=== PATIENT | female | born 1955 | race Caucasian/White ===

== ENCOUNTER 2016-10-12 18:57 | Emergency (ER) | payer OTHER ==
[~2016-10-12] VITALS: Ht 165.1 cm; Wt 58.1 kg
[~2016-10-12 18:57] MED LIST: CALC-587 PO; MULT-806 PO; VITAMIN C; [UNRECOGNIZED DRUG - CODE] TD
[2016-10-12 18:58] VITALS: BP 139/83; PULSE 58; RESP 16; TEMP 97.8; O2SAT 93; Ht 165.1 cm; Wt 58.1 kg
[2016-10-12] MEDS ORDERED: NAPROXEN 500 MG TABLET PO ONE (19:15)
--- NOTE | 2016-10-12 19:15 | ERPDOC ---
Departure Disposition Decision Date: Oct 12, 2016 Disposition Decision Time: 20:04 Disposition: 01 DISCHARGED HOME, SELF-CARE Impression Impression Impression: Primary Impression: Knee pain, right Chronicity: acute Qualified Codes: M25.561 - Pain in right knee Severity: Mild Condition: Stable Seen By: Mid-level only Referrals: NERIS RODRIGUEZ DO (Family) Patient Instructions: Knee Pain (ED) Problems/Meds/Labs Reviewed?: Yes Medications reviewed and manag: Yes Additional Instructions: Use vincent wrap for compression Elevate and ice knee 4 times a day as able. Use naproxen [id number] 500 milligrams twice a day for 5 days to help with pain and inflammation Follow-up with Dr. Rodriguez in one week if not improving or return for worsening symptoms Follow up care ordered?: Yes Mental Status: Alert, Oriented HPI - Lower Extremity General Chief Complaint: Lower Extremity Pain Stated Complaint: POSS BLOOD CLOT Time Seen by Provider: 19:00 Source: patient Exam Limitations: no limitations HPI - Lower Extremity Initial Comments Patient is a 61-year-old female who presents to the emergency room for evaluation of right lower extremity discomfort just distal to the right knee. She reports has had pain on the anterior aspect distal to the knee for the past 2 days. Seems to be worse with standing or position changes. Reports that the longer that she walks the better that it feels. She presented to after hours clinic at [place]. This evening, however, was then directed to the emergency room for further workup. Occurred At: home Onset/Timing: Gradual Duration: 12-24 hrs Pain/Severity Scale: Now: 7/10 Severity: mild Pain/Injury Location: right knee 1 - pain Allergies: Coded Allergies: No Known Allergies (Unverified , 10/12/16) Past History Patient Medical History Problem List Updates: Chronic headaches Hx Brain injury Patient Surgical History Hysterectomy Vaccines Hx Influenza Vaccination: No Hx Pneumococcal Vaccination: No Social History Smoking Status: Current every day smoker Substance Use Type: does not use Alcohol Intake: none Current Occupation: Teacher Review of Systems Constitutional Constitutional: DENIES: chills, dizziness, fever, weakness Eyes General: DENIES: pain Lids/Accessories: DENIES: erythema, lumps/nodules ENMT Sinuses: DENIES: congestion, pain, rhinorrhea Mouth/Throat: DENIES: change in voice, sore throat Cardiovascular Cardiac: DENIES: chest pain, dyspnea on exertion, murmur Rhythm/Rate: DENIES: irregular beat, palpitations Pulmonary Respiratory: DENIES: cough, dyspnea, tachypnea GI Upper Abdomen: DENIES: nausea, pain, vomiting Lower Abdomen: DENIES: blood in stool, constipation, diarrhea, pain General: DENIES: burning, dysuria, frequency, pain, urgency Musculoskeletal General: pain (Right anterior lower ext distally to knee), DENIES: weakness Integumentary Skin: DENIES: rash Neurological General: DENIES: ataxia, change in strength, headache, numbness, seizures, syncope, weakness Psychiatric Psychiatric: DENIES: depression, emotional instability, irritability, nervousness All other Systems All Other Systems: Reviewed and Negative Physical Exam General Vitals and Pain First Documented Vital Signs Date Time Temp Pulse Resp B/P Pulse Ox O2 Delivery O2 Flow Rate FiO2 10/12/16 18:58 97.8 58 16 139/83 93 Room Air Weight: Kilograms: 58.100 Height (feet): 5 Height (inches): 5.00 Triage Pain Scale: Normal Exams: Head: Normocephalic w/o trauma Eyes: Pupils are PERRLA w/ EOMI, No scleral icterus, irritation, or foreign bodies noted Neck: Full range of motion, without adenopathy, JVD, bruits or thyromegaly Chest/Resp: Clear all lawrence, with good airflow, and symmetry bilaterally CV: Regular rate and rhythm, without murmur or gallop, Pulses 2+ all extremities, capillary refill, <2 seconds all ext., no pedal edema noted Abdomen: Bowel sounds positive, soft, non-tender, non-distended, no hepatosplenomegaly, masses or bruits noted Neurologic: Patient is alert, and oriented, cranial nerves, motor/sensory/ cerebellar, exams w/o gross deficits, to observation Psychiatric: Patient exhibits, appropriate attention, emotion and affect Musculoskeletal (brief) Musculoskeletal Brief: FOUND: tenderness (pain anterior aspect of the right lower extremity just distal to the knee. Mild medial soft tissue swelling) Differential Diagnoses Considering: Achilles Tendon Tear, Cartilage Tear, Cellulitis, Compartment Syndrome, Contusion, Dislocation, DVT, Ligament Tear ACL, Ligament Tear PCL, Meniscal Injury, Knee, Plantar Puncture, Sprain, Strain, Viral Synovitis Progress Results/Orders Orders Procedure Category Date Status Time Knee Right 3 Views RAD 10/12/16 Taken 19:11 D-Dimer LAB 10/12/16 Complete 19:11 Naproxen (Naprosyn PHA 10/12/16 Complete 500mg) 19:15 Cbc W/Auto LAB 10/12/16 Complete Diff-Reflex Manual Premade Splint EDM 10/12/16 Transmitted 20:05 Lab Results Laboratory Tests Test 10/12/16 19:22 10/12/16 19:26 White Blood Count 6.9T/MM3 Red Blood Count 4.59M/MM3 Hemoglobin 14.5GM/DL Hematocrit 42.8% Mean Corpuscular Volume 93.2UM3 Mean Corpuscular Hemoglobin 31.6UUG Mean Corpuscular Hemoglobin Concent 33.9GM/DL RDW Standard Deviation 42.7FL Platelet Count 181T/MM3 Mean Platelet Volume 10.3UM3 Immature Granulocyte % (Auto) 0.1% Neutrophils (%) (Auto) 52.0% Lymphocytes (%) (Auto) 35.6% Monocytes (%) (Auto) 6.2% Eosinophils (%) (Auto) 5.5% Basophils (%) (Auto) 0.6% Absolute Immature Granulocyte (auto 0.01T/MM3 Absolute Neutrophils (auto) 3.6T/MM3 Absolute Lymphocytes (auto) 2.5T/MM3 Absolute Monocytes (auto) 0.4T/MM3 Absolute Eosinophils (auto) 0.4T/MM3 Absolute Basophils (auto) 0.0T/MM3 D-Dimer < 150NG/ML Medications Current ED Medications Naproxen (NAPROSYN 500mg) 500 mg O ONCE PO Last administered on 10/12/16t 19:53 ; Start 10/12/16 at 19:15; Stop 10/12/16 at 19:16; Status DC Progress Progress Given risk factors for DVT including chronic Estrogen use, Chronic Tobacco use and recent car ride to [place] last week. Will obtain a d-dimer to rule out acute thrombus. Given pain to the knee with range of motion. Will obtain right knee x-ray. Reviewed all findings with patient. Recommend using Vincent wrap to the right knee for support. Encouraged use of NSAID, Naproxen 500 milligrams twice a day for 5 days. Encouraged to follow with primary care provider, Dr. Rodriguez for further evaluation and treatment. BRANDON PARKER V [employer] Oct 12, 2016 19:14
--- NOTE | 2016-10-12 19:30 | NUR ---
XRAY PATIENT TO RADIOLOGY PER WC, STABLE.
[2016-10-12 19:33] LABS: BASOPHILS % (AUTO) 0.6 % (0-2); EOSINOPHILS # (AUTO) 0.4 T/MM3 (0-0.5); EOSINOPHILS % (AUTO) 5.5 % (0-4); HCT - HEMATOCRIT 42.8 % (36-46); HGB - HEMOGLOBIN 14.5 GM/DL (12-16); IMMATURE GRANULOCYTE # (AUTO) 0.01 T/MM3 (0.00-0.03); IMMATURE GRANULOCYTE % (AUTO) 0.1 % (0.0-0.5); LYMPHOCYTES # (AUTO) 2.5 T/MM3 (1-4.8); LYMPHOCYTES % (AUTO) 35.6 % (23-45); MEAN CORPUSCULAR HGB 31.6 UUG (26-34); MEAN CORPUSCULAR HGB CONC(MCHC 33.9 GM/DL (31-37); MEAN CORPUSCULAR VOLUME 93.2 UM3 (80-100); MEAN PLATELET VOLUME 10.3 UM3 (9.4-12.4); MONOCYTES # (AUTO) 0.4 T/MM3 (0-0.8); MONOCYTES % (AUTO) 6.2 % (0-9.0); NEUTROPHILS #(AUTO)-ABSOLUTE 3.6 T/MM3 (1.8-7.7); RED BLOOD COUNT 4.59 M/MM3 (4.00-5.20); WBC - WHITE BLOOD COUNT 6.9 T/MM3 (4.5-11.0)
--- NOTE | 2016-10-12 19:36 | NUR ---
RETURN PATIENT BACK FROM XRAY PER WC, STABLE.
[2016-10-12] MEDS ORDERED: ESTR1PAT91 TD (19:44)
[2016-10-12] MEDS ORDERED: LACT1CAP73 PO (19:47)
[2016-10-12] MEDS ORDERED: PSEU120T17 PO (19:47)
[2016-10-12] MEDS ORDERED: ASCO500T8 PO (19:47)
[2016-10-12] MEDS ORDERED: ESTRPATC4 TD (19:47)
[2016-10-12] MEDS ORDERED: CA C1TAB99 PO (19:48)
[2016-10-12] MEDS ORDERED: ACET-62 PO (19:48)
--- NOTE | 2016-10-12 20:15 | NUR ---
DEPART RN TO BEDSIDE TO DISMISS PATIENT, PATIENT NOT IN ROOM, RN CHECKED WITH REGISTRATION, THEY REPORT PATIENT HAS ALREADY LEFT. PATIENT LEFT PRIOR TO RECEIVING EDUCATION AND GIDEON WRAP.
--- NOTE | 2016-10-13 08:02 | DI ---
Indication: ITS.REASON: pain, swelling PROCEDURE: KNEE RIGHT 3 VIEWS: Encounter: Initial Comparison: None Findings: There is no acute fracture, dislocation or malalignment identified. Impression: No acute osseous abnormality. .
== END 2016-10-12 20:15 | disposition home or self-care (01) ==
LOC: ED 18:57
DX: M25.561 Pain in right knee (principal); F17.200 Nicotine dependence, unspecified, uncomplicated; Z79.3 Long term (current) use of hormonal contraceptives
CPT/HCPCS: 36415; 85025; 85379

== ENCOUNTER → 2016-11-30 | Outpatient (CLI) | payer OTHER ==
[~2016-11-30] MED LIST changes: +ACET-62 PO; +ASCO500T8 PO; +CA C1TAB99 PO; -CALC-587 PO; +ESTRPATC4 TD; +LACT1CAP73 PO; +PSEU120T17 PO; -VITAMIN C; -[UNRECOGNIZED DRUG - CODE] TD
== END ==
LOC: WC.BC 13:23
DX: Z12.31 Encounter for screening mammogram for malignant neoplasm of breast (principal)
CPT/HCPCS: 77063; G0202

== ENCOUNTER 2017-08-15 12:46 | Inpatient (IN) ==
--- NOTE | 2017-08-15 12:59 | Emergency Department Report ---
General Adult HPI - General Chief complaint: Shortness of Breath/Dyspnea Stated complaint: pneumonia, left side pain Time Seen by Provider: 08/15/17 12:57 Source: patient, family Mode of arrival: ambulatory Limitations: no limitations - History of Present Illness HPI narrative: 62-year-old female presents to the emergency department with a chief complaint of pain in her left posterior ribs. Patient noted onset of symptoms couple of days ago prior to arrival to the emergency department. She was seen and evaluated yesterday and prescribed Levaquin for treatment of pneumonia. She describes her pain as sharp. Pain is severe. No radiation. This is the same pain she was experiencing 1 day ago. She notes a cough productive of green mucus. She has no other complaints or associated symptoms at this time. Symptoms have been persisted in nature since onset. She denies any trauma or injury. - Related Data Home Medications Medication Instructions Recorded Confirmed Ascorbate Calcium [Vitamin C] 1,000 mg PO DAILY 08/14/17 08/15/17 Calcium Carb/Vitamin D3/Vit K1 1 tab PO DAILY 08/14/17 08/15/17 [Viactiv Soft Chew Tablet] Cholecalciferol (Vitamin D3) 1,000 unit PO DAILY 08/14/17 08/15/17 [Vitamin D3] Estradiol [Estradiol] 1 patch TD WEEKLY 08/14/17 08/15/17 Ibuprofen 400 mg PO Q4H PRN 08/14/17 08/15/17 Lactobacillus Acidophilus 1 cap PO DAILY 08/14/17 08/15/17 [Probiotic] Loratadine [Claritin] 10 mg PO DAILY 08/14/17 08/15/17 Multivitamin [One Daily] 1 tab PO DAILY 08/14/17 08/15/17 PEG 3350 17gm PACKET [Miralax] 17 gm PO DAILY PRN 08/15/17 08/15/17 Previous Rx's Medication Instructions Recorded levoFLOXacin [Levaquin] 500 mg PO DAILY #14 tab 08/14/17 Allergies Allergy/AdvReac Type Severity Reaction Status Date / Time No Known Allergies Allergy Verified 08/15/17 12:53 Review of Systems Constitutional: Denies: fever, chills Eyes: Denies: eye pain, vision change ENT: Denies: ear pain, throat pain Cardiovascular: Denies: chest pain, palpitations Respiratory: Reports: cough, dyspnea. Denies: wheezes Gastrointestinal: Denies: abdominal pain, nausea, vomiting, diarrhea Genitourinary: Denies: urgency, dysuria Musculoskeletal: Denies: back pain, arthralgia Integumentary: Denies: erythema, rash Neurological: Denies: headache, numbness Psychiatric: Denies: anxiety, depression Endocrine: Denies: fatigue, heat or cold intolerance Hematological/Lymphatic: Denies: easy bruising, lymphadenopathy Allergic/Immunologic: Denies: facial swelling, urticaria PFSH Patient Stated Medical History Pneumonia Yes Post Menopausal Yes Clinic Medical History (Last Updated 04/06/17 @ 09:13 by Min Bates MD) Chronic headaches (Acute Medical ~04/2016) Surgical History: Hysterectomy 1997. Bunuionectomy 2013 Family History: Family History (Last Reviewed 04/06/17 @ 08:54 by Min Bates MD) Mother Heart attack High blood pressure Father Diabetes Stroke - Social History Smoking status: Former smoker Substance use type: does not use Alcohol intake frequency: does not drink Physical Exam - Limitations Limitations: no limitations - General General appearance: alert, in no apparent distress (shallow respirations noted. ) - Normal Exams: Head:: Normocephalic without trauma Eyes:: Pupils are PERRLA w/ EOMI, No scleral icterus, irritation, or foreign bodies noted ENMT:: No facial trauma, nasal exudates, pharyngeal erythema, or exudates are noted Dental: No fractured, loose, or missing teeth noted Neck:: Full range of motion, without adenopathy, JVD, bruits or thyromegaly Chest/Respirations:: Clear all lawrence (Diminished lung sounds in the bases.), with good airflow, and symmetry bilaterally Cardiovascular:: Regular rate and rhythm, without murmur or gallop, Pulses 2+ all extremities, capillary refill, <2 seconds all extremities Abdomen:: Bowel sounds positive, soft, non-tender, non-distended, no hepatosplenomegaly, masses or bruits noted Lymphatic:: No lymphadenopathy, or lymphedema noted Musculoskeletal:: No tenderness, or deformity noted, good range of motion, all extremities Integumentary:: No rashes, hives, or bruising noted, hair and nails, without abnormality Neurological:: Patient is alert, and oriented, cranial nerves, motor/sensory/ cerebellar, exams w/o gross deficits, to observation Psychiatric:: Patient exhibits, appropriate attention, emotion and affect Course Vital Signs Temperature 98.6 F 08/15/17 12:54 Pulse Rate 109 H 08/15/17 12:54 Respiratory Rate 32 H 08/15/17 12:54 Blood Pressure 140/80 H 08/15/17 12:54 Pulse Oximetry 93 08/15/17 12:54 Temperature 96.5 F L 08/16/17 00:00 Pulse Rate 67 08/16/17 00:00 Respiratory Rate 18 08/16/17 00:00 Blood Pressure 156/83 H 08/16/17 00:00 Pulse Oximetry 97 08/16/17 00:00 Medical Decision Making - [facility] Narrative Medical decision making narrative: Labs/imaging were discussed in detail with the patient and family and questions are answered. Patient is given gentle IV hydration. Patient is given parental narcotic and antiemetic medications intravenously which improved her symptoms. Patient is started on Rocephin 1 g intravenously in the emergency department after chest x-ray is reviewed. Sepsis was considered at 1400 and a chest x-ray was reviewed and Rocephin ordered. Patient is admitted to the service of the hospitalist Dr. Izaguirre in improved condition. No further orders from accepting physician who is in agreement with the current plan of management. Patient is started on Rocephin 1 g intravenously in the emergency department after chest x-ray is reviewed. Sepsis was considered at 1400 and a chest x-ray was reviewed and Rocephin ordered. She was never hypotensive in the ED and her lactic acid was less than 4.0. - Differential Diagnosis PNA, Viral syndrome, URI, Metabolic disorder - Lab Data Result diagrams: 08/16/17 04:33 08/16/17 04:33 Lab Results 08/15/17 08/15/17 08/15/17 Range/Units 13:21 13:21 13:21 WBC 12.5 H (4.5-11.0) T/MM3 RBC 4.08 (4.00-5.20) M/MM3 Hgb 12.9 (12-16) GM/DL Hct 37.8 (36-46) % MCV 92.6 (80-100) UM3 MCH 31.6 (26-34) UUG MCHC 34.1 (31-37) GM/DL RDW Std Deviation 42.5 (36.9-50.2) FL Plt Count 165 (130-400) T/MM3 MPV 9.9 (9.4-12.4) UM3 Immature Gran % (Auto) 1.0 H (0.0-0.5) % Neut % (Auto) 85.0 H (33-66) % Lymph % (Auto) 6.3 L (23-45) % [place] % (Auto) 7.4 (0-9.0) % Eos % (Auto) 0.1 (0-4) % Baso % (Auto) 0.2 (0-2) % Neut # (Auto) 10.6 H (1.8-7.7) T/MM3 Lymph # (Auto) 0.8 L (1-4.8) T/MM3 [place] # (Auto) 0.9 H (0-0.8) T/MM3 Eos # (Auto) 0.0 (0-0.5) T/MM3 Baso # (Auto) 0.0 (0-0.2) T/MM3 Abs Immat Gran (auto) 0.12 H (0.00-0.03) T/MM3 Turbidity < 20 (0-20) Sodium 134 (134-144) MEQ/L Potassium 3.9 (3.6-5) MEQ/L Chloride 102 (98-107) MEQ/L Carbon Dioxide 25 (22-30) MEQ/L Anion Gap 7 (5-15) MEQ/L BUN 10.0 (7-17) MG/DL Creatinine 0.6 L (0.7-1.2) MG/DL GFR Calculation 102 BUN/Creatinine Ratio 17 (6-26) RATIO Glucose 128 H (65-110) MG/DL Calculated Osmolality 259 L (261-280) MOSM/KG Calcium 9.0 (8.4-10.2) MG/DL Total Bilirubin 0.70 (0.20-1.30) MG/DL Icterus Index < 2 (0-7) AST 18 (14-36) U/L ALT 30 (9-52) U/L Alkaline Phosphatase 91 (38-126) U/L Troponin I < 0.012 (0-0.12) ng/ml Total Protein 7.1 (6.3-8.2) G/DL Albumin 3.8 (3.5-5.0) G/DL Globulin 3.3 (2.4-3.6) G/DL Albumin/Globulin Ratio 1.2 (1.1-2.2) RATIO Plasma Lactate 1.7 (0.6-2.2) MMOL/L Procalcitonin 0.97 NG/ML Specimen Hemolysis < 15 (0-25) - Radiology Data CXR - Bilateral Lower Lobe Infiltrates otherwise no acute processes. - EKG Data EKG #1 EKG results narrative: Sinus tachycardia. 104 bpm. No STEMI. Disposition Clinical Impression: Bilateral pneumonia Disposition: 02 Acute Care Hosp, Other Condition: Stable Time of Disposition: 14:45 (Admit. Dr. Izaguirre. ) - Seen By: physician
[2017-08-15] MEDS ORDERED: NS 1,000 ML IV ONE (13:16)
[2017-08-15] MEDS ORDERED: FentaNYL 100 MCG/2 ML INJECTION IVP ONE ×2 (13:16→15:17)
[2017-08-15] MEDS ORDERED: ONDANSETRON 4 MG/2 ML INJECTION IVP ONE (13:17)
[2017-08-15] MEDS ORDERED: ALBUTEROL/IPRATROPIUM 2.5mg-0.5mg/3ml NEB AEROSOL ONE (13:17)
[2017-08-15] MEDS: SALINE FLUSH 10ml SYRINGE IVF PRN (13:31)
--- NOTE | 2017-08-15 13:46 | XRay Report ---
Indication: cough PROCEDURE: XR chest 1V: Encounter: Initial Comparison: CT abdomen and pelvis from yesterday Findings: Hazy airspace opacities are seen in both lower lobes as noted on prior CT with a small left effusion. No pneumothorax. Heart size and mediastinal contours are within normal limits. Pulmonary vascularity is normal. Impression: Lower lobe pneumonia. .
[2017-08-15] MEDS ORDERED: CEFTRIAXONE (ER USE ONLY) 1 GM in NS 100 ML IV ONE (14:00)
[2017-08-15 15:59] VITALS: BMI 20.5
[2017-08-15] MEDS ORDERED: MORPHINE SULFATE 2mg INJECTION IVP PRN (16:15)
[2017-08-15] MEDS: NS 1,000 ML IV SCH (16:30)
--- NOTE | 2017-08-15 16:30 | History & Physical Report ---
History of Present Illness Date: 08/15/17 Chief complaint: Bilateral pneumonia, shortness of breath, back pain HPI: Getrrude is a 62 year-old female who has been ill since 08/07/17. At that time she had cough and severe body aches. She felt that she had influenza, however, was not acutely evaluated. Over the course of that week, she felt that her symptoms mildly improved and she even attempted to go to work yesterday morning, however , then began to feel significantly worse. She presented to the emergency room yesterday afternoon for acute evaluation and left flank/back pain. WBC count yesterday was 14.4, abdominal CT was performed due to left back pain. Patient was found to have lower lobe pneumonia. She was started on Levaquin and discharged home. Today she presents back with significant pain in the left back with continued dyspnea and productive coughing. White count today was repeated is slightly down at 12.5. Chest was repeated today did reveal bilateral lower lobe pneumonia. Patient does meet SIRS criteria given tachypnea, tachycardia and leukocytosis. Given her worsening symptoms despite initiation of Levaquin the hospitalist services were contacted and accepted patient for inpatient admission for further evaluation and treatment. It is expected that her stay will be greater than 2 overnights. Gertrude is seen on admission. She appears to be in a moderate amount of discomfort during examination. She is tachypnea, breathing between 34 and 40 times a minute. He complains of having significant amount of left back and left posterior rib discomfort. She is unable to take a deep breath due to this pain. He describes muscle spasms that are intermittent in nature. He also reports having a moderate amount of productive thick green sputum. She denies having any fevers or chills, she does complain of generalized body pain that is been intermittent for the past 9-10 days. She denies having any chest pain, however, does feel short of breath at times. Reported nausea just prior to admission. No recent falls or injuries. Did discuss advanced directive. She does indicate she would like to be a do not resuscitate Review of Systems All systems PM: 10-point ROS was reviewed, no additional remarkable complaints except - Constitutional Constitutional: Present: fatigue, weakness - Respiratory Respiratory: Present: as per HPI, cough, dyspnea - Gastrointestinal Gastrointestinal: Present: nausea - Musculoskeletal Musculoskeletal: Present: as per HPI, back pain (left back pain) Past Medical History Headaches Pituitary adenoma Surgical History: Hysterectomy 1997. Bunuionectomy 2013 Family History Updates: Mother- [place], hypertension-. Father- diabetes, stroke - Social History Smoking status: Current some day smoker (occasional tobacco use) Substance use type: does not use Alcohol intake frequency: does not drink Current occupational status: employed (teacher) Current residence: Apartment/Private Home Social history: Resides independly at home with . Primary care provider, Dr. Rodriguez Medications Home Medications Medication Instructions Recorded Confirmed Type Ascorbate Calcium [Vitamin C] 1,000 mg PO DAILY 08/14/17 08/15/17 History Calcium Carb/Vitamin D3/Vit K1 1 tab PO DAILY 08/14/17 08/15/17 History [Viactiv Soft Chew Tablet] Cholecalciferol (Vitamin D3) 1,000 unit PO DAILY 08/14/17 08/15/17 History [Vitamin D3] Estradiol [Estradiol] 1 patch TD WEEKLY 08/14/17 08/15/17 History Ibuprofen 400 mg PO Q4H PRN 08/14/17 08/15/17 History Lactobacillus Acidophilus 1 cap PO DAILY 08/14/17 08/15/17 History [Probiotic] Loratadine [Claritin] 10 mg PO DAILY 08/14/17 08/15/17 History Multivitamin [One Daily] 1 tab PO DAILY 08/14/17 08/15/17 History PEG 3350 17gm PACKET [Miralax] 17 gm PO DAILY PRN 08/15/17 08/15/17 History Allergies Allergy/AdvReac Type Severity Reaction Status Date / Time No Known Allergies Allergy Verified 08/15/17 12:53 Exam Vital Signs: Temperature 97.0 F 08/15/17 16:00 Pulse Rate 107 H 08/15/17 16:00 Respiratory Rate 24 08/15/17 16:00 Blood Pressure 144/74 H 08/15/17 16:00 Pulse Oximetry 92 08/15/17 16:00 Height/Weight/BMI: Height 1.68 m Weight 57.7 kg Body Mass Index 20.5 - Constitutional Present: moderate distress, well nourished, well developed - Routine HEENT Exam Eye: Present: EOMI ENT: Present: mucous membranes moist, dentition normal - Routine Respiratory Exam Present: CTA bilaterally. Absent: wheezes - Routine Cardiovascular Exam Present: RRR, S1, S2, tachycardia. Absent: murmur - Routine Abdominal Exam Present: soft, normoactive bowel sounds, non distended. Absent: tenderness - Routine Extremities Exam Present: no edema, pulses intact - Routine Back/Spine/Pelvis Exam Back image: 1 - Significant pain - Routine Skin Exam Present: intact, dry, warm - Routine Neurological Exam Present: alert, oriented X3, CN II-XII intact, moving all extremities - Routine Psychiatric Exam Present: normal affect, cooperative Results - Labs CBC & Chem 7: 08/15/17 13:21 08/15/17 13:21 Assessment and Plan (1) SIRS (systemic inflammatory response syndrome) Current visit: Yes Status: Acute (2) Bilateral pneumonia Current visit: Yes Status: Acute Assessment and Plan: Impression Bilateral lower lobe pneumonia Sirs-tachycardia, tachypnea, leukocytosis Acute back pain Failed outpatient treatment Chronic headaches Chronic pituitary adenoma Plan Admit inpatient status under Dr. Izaguirre Did speak with case management, patient does meet criteria for inpatient admission given above listed. Initial lactate and pro-calcitonin were normal, will cancel serial lactate. Obtain a respiratory panel, sputum culture and d-dimer for further acute workup. Will continue with IV Levaquin 750 mg q 24 hr antimicrobial coverage. Blood cultures pending DuoNeb breathing treatments scheduled 4 times a day, also encourage use of incentive spirometry. Concerned about patient's amount of chest wall discomfort and her reluctance he to take good deep breaths. Zofran as needed for nausea Morphine available as needed for pain control. Mucinex twice a day for mucolytic effect Flexeril as needed for muscle spasms given keep back pain. NS at 100ml per hour for gentle hydration SCDs to bilateral lower extremity for DVT prophylaxis Patient does wish to be do not resuscitate and this order is written. Will discuss further orders and plan of care with attending, Dr. Izaguirre. At time of discharge medical care will return to PCP Dr. Rodriguez DVT Prophylaxis: SCD's, Lovenox Resuscitation Status: Do Not Resuscitate - Physician Narrative Physician: Kristen Izaguirre MD Narrative: Date: 08/15/17 Time: 1844 I have independently evaluated and examined this patient. I reviewed the chart, the patient's history, and the DOCKETING SPECIALIST/PA's documented findings as above. We discussed and formulated the assessment and plan as above with additions as below: Ms. Serna presents with increasing dyspnea, cough, and sputum production with intense left posterior lateral chest wall and pleuritic pain present for 1-2 days. Left lower lobe pneumonia and possible minor right lower lobe pneumonia were identified by CT of the abdomen yesterday when she was evaluated in the emergency room (although by my review the right changes are minimal and likely due to atelectasis). There is extensive left lower infiltrate on the CT and it is again seen on chest x-ray today. She describes exertional dyspnea and increased pain with cough, sneezing, or straining to urinate. She denies dysuria or hematuria. She's had low-grade fevers with chills and sweats at home and believes maximum temperature has been 100.5. Evaluation in the emergency room demonstrated tachypnea, tachycardia, and leukocytosis-slightly improved from yesterday with persistent left lower lobe infiltrate. Pain control required IV narcotics and she is subsequently admitted for further management given failed outpatient therapy. D-dimer was subsequently learned to be elevated. Patient is alert but appears to be in quite a bit of discomfort despite having received morphine shortly before my evaluation Respirations are moderately labored with decreased airflow and coarse sounds at the left base There is palpable tenderness along the posterior lateral left chest wall Conjunctiva are clear, sclera anicteric, gaze conjugate, oropharynx is clear and neck is without adenopathy. Mild tenderness on palpation of the left upper quadrant without guarding or peritoneal signs MAEW although minimizes movement to limit chest wall movement. D-dimer 385, white count 14.4 yesterday, 12.5 today; slight drop in hemoglobin from 14.1 to 12.9 today. Electrolytes/renal function/liver enzymes all normal. Sputum culture canceled due to multiple epithelial cells present. CT of the abdomen/pelvis and chest x-ray have both been reviewed by myself demonstrating the infiltrates as described above which I believe to be primarily left lower lobe with possible minor right-sided infiltrate/ atelectasis. Given degree of pain, limited activities recently due to pain, and elevated d- dimer will proceed with CTA of the chest. Continue Levaquin for community-acquired pneumonia, repeat sputum culture-at present do not feel strongly that there is a need to treat for staph pneumonia given improvement in leukocytosis on Levaquin overnight. Patient describes abrupt onset of symptoms with chills and recurrent cough- suspicious for strep pneumonia-->urine antigen to be obtained. DO NOT RESUSCITATE noted, patient would like her brother Ariel Serna to be her alternate decision-maker if needed. Sepsis Assessment - Evaluation SIRS Criteria: pulse > 90 beats/minute, WBC > 12,000, RR > 20 Hospital Course Summary Disclaimer: The visit summary below is not to be considered part of the above Progress Note. Hospital Course: Impression Bilateral lower lobe pneumonia Sirs-tachycardia, tachypnea, leukocytosis Acute back pain Failed outpatient treatment Chronic headaches Chronic pituitary adenoma Plan Admit inpatient status under Dr. Izaguirre Did speak with case management, patient does meet criteria for inpatient admission given above listed. Initial lactate and pro-calcitonin were normal, will cancel serial lactate. Obtain a respiratory panel, sputum culture and d-dimer for further acute workup. Will continue with IV Levaquin 750 mg q 24 hr antimicrobial coverage. Blood cultures pending DuoNeb breathing treatments scheduled 4 times a day, also encourage use of incentive spirometry. Concerned about patient's amount of chest wall discomfort and her reluctance her to take good deep breaths. Zofran as needed for nausea Morphine available as needed for pain control. Mucinex twice a day for mucolytic effect Flexeril as needed for muscle spasms given keep back pain. NS at 100ml per hour for gentle hydration SCDs to bilateral lower extremity for DVT prophylaxis Patient does wish to be do not resuscitate and this order is written. D-dimer moderately elevated, decreased activity due to pleuritic pain-CTA of the chest being obtained. History suggestive of strep pneumonia-urine antigen ordered. At time of discharge medical care will return to PCP Dr. Rodriguez
[2017-08-15] MEDS: LEVOFLOXACIN PB 750 MG/150 ML BAG IV SCH (17:21)
[2017-08-15] MEDS ORDERED: POLYETHYL GLYCOL 3350 17gm PACKET PO PRN (18:22)
[2017-08-15] MEDS ORDERED: ALBUTEROL/IPRATROPIUM 2.5mg-0.5mg/3ml NEB AEROSOL PRN (18:23)
[2017-08-15] MEDS: ALBUTEROL/IPRATROPIUM 2.5mg-0.5mg/3ml NEB AEROSOL SCH ×2 (18:30→22:04)
[2017-08-15] MEDS: MORPHINE SULFATE 2mg INJECTION IVP PRN ×2 (18:52→21:57)
[2017-08-15] MEDS: ONDANSETRON 4 MG/2 ML INJECTION IVP PRN ×2 (18:56→23:48)
[2017-08-15] MEDS: CYCLOBENZAPRINE 10 MG TABLET PO PRN (18:56)
[2017-08-15] MEDS: METOCLOPRAMIDE 10mg/2ml INJECTION IVP PRN (19:55)
[2017-08-15] MEDS: GUAIFENESIN LA 600 MG TABLET PO SCH (23:11)
[2017-08-15] MEDS: HYDROCODONE/APAP 7.5 MG/325 MG TABLET PO PRN (23:48)
[2017-08-16] MEDS: MORPHINE SULFATE 2mg INJECTION IVP PRN ×4 (00:05→10:54)
[2017-08-16] MEDS: SALINE FLUSH 10ml SYRINGE IVF PRN ×4 (00:06→05:33)
[2017-08-16] MEDS: METOCLOPRAMIDE 10mg/2ml INJECTION IVP PRN (03:12)
[2017-08-16] MEDS: CYCLOBENZAPRINE 10 MG TABLET PO PRN (03:23)
[2017-08-16] MEDS: NS 1,000 ML IV SCH ×2 (03:25→18:52)
[2017-08-16] MEDS: HYDROCODONE/APAP 7.5 MG/325 MG TABLET PO PRN ×3 (04:45→16:47)
[2017-08-16] MEDS ORDERED: LORATADINE 10 MG TABLET PO SCH (06:30)
[2017-08-16] MEDS: ALBUTEROL/IPRATROPIUM 2.5mg-0.5mg/3ml NEB AEROSOL SCH ×3 (08:20→15:07)
[2017-08-16] MEDS: GUAIFENESIN LA 600 MG TABLET PO SCH ×2 (09:00→19:53)
[2017-08-16] MEDS ORDERED: ENOXAPARIN 40 MG/0.4 ML INJECTION SQ SCH (09:00)
[2017-08-16] MEDS ORDERED: IOHEXOL 350mg/ml 75ml INJECTION ONE (09:47)
[2017-08-16] MEDS ORDERED: SALINE FLUSH 10ml SYRINGE ONE (09:47)
--- NOTE | 2017-08-16 09:53 | Progress Note ---
- Date 08/16/17 Subjective: Gertrude doesn't feel any better. She is still in a great deal of pain to her left flank and occ into her left shoulder/neck. She states it hurts terribly to try to take a deep breath. She's still nauseated and doesn't feel like eating anything. She was able to cough up a sputum sample this am. She didn't sleep well last night due to pain and SOA; she cannot lie flat (supine) either. Morphine seems to help with her distress. Objective Vital signs: Temperature 99.3 F 08/16/17 08:54 Pulse Rate 110 H 08/16/17 08:54 Respiratory Rate 16 08/16/17 08:54 Blood Pressure 122/69 08/16/17 08:54 Pulse Oximetry 91 08/16/17 08:54 Height/Weight/BMI: Weight 59.1 kg - Constitutional Present: moderate distress, thin - Routine HEENT Exam Head: Present: normocephalic Eye: Absent: conjunctival icterus, scleral injection - Routine Respiratory Exam Present: diminished air movement Comments: tachypneic and shallow breathing; splinting frequently - Routine Cardiovascular Exam Present: RRR, S1, S2 - Routine Abdominal Exam Present: non tender, distended (mild). Absent: normoactive bowel sounds ( hypoactive) - Routine Extremities Exam Present: no edema, pulses intact - Routine Musculoskeletal Exam Musculoskeletal: Present: no joint swelling - Routine Skin Exam Present: intact, dry, warm - Routine Neurological Exam Present: alert, oriented X3, CN II-XII intact, moving all extremities, normal speech. Absent: facial asymmetry - Routine Psychiatric Exam Present: normal thought process, cooperative Results - Labs CBC & Chem 7: 08/16/17 04:33 08/16/17 04:33 Microbiology Results: Microbiology 08/16/17 09:07 Sputum, Expectorated Sputum Culture - Preliminary Culture Initiated - Results Pending Assessment and Plan (1) SIRS (systemic inflammatory response syndrome) Current visit: Yes Status: Acute (2) Bilateral pneumonia Current visit: Yes Status: Acute Assessment and Plan: Impression Bilateral lower lobe pneumonia Elevated d-dimer (POA) Acute hypoxic respiratory insufficiency requiring supplemental oxygen Sirs-tachycardia, tachypnea, leukocytosis Acute back pain Failed outpatient treatment Chronic headaches Chronic pituitary adenoma Plan Continue Levaquin, and nebs for CAP. Viral resp panel was negative. Leukocytosis persists, 12.8. Oxygen has been applied for hypoxia with room air sat of 88% this am. CTA chest pending. Renal function stable. Requiring frequent doses of IV morphine for symptom control. Will add Ativan for air hunger as well. Reglan PRN nausea. Decrease rate of IVF. Discussed with Dr. Izaguirre and with patient's RN. High risk medication in use. DVT Prophylaxis: SCD's, Lovenox Resuscitation Status: Do Not Resuscitate - Physician Narrative Physician: Kristen Izaguirre MD Narrative: Date: 08/16/17 Time: 1550 I have independently evaluated and examined this patient. I reviewed the chart, the patient's history, and the INSURANCE COLLECTOR/PA's documented findings as above. We discussed and formulated the assessment and plan as above with additions as below: Ms. Serna continues to have significant pain in her left lower chest wall and flank causing difficulty breathing and intense pain when she coughs. Pain pills and morphine help but do not fully alleviate pain. Cough is occasionally productive of sputum. Hypoxia developed overnight. Patient is drowsy but answers questions appropriately. Respirations are moderately labored and very shallow. Breath sounds are diminished without wheezing. Cardiac rhythm is regular with low-grade tachycardia. CTA reviewed by myself-increasing infiltrate in both lungs-dense consolidation left lower lung field with moderate left pleural effusion; mucous plugging in the airways. Worsening pneumonia, very symptomatic with development of hypoxia overnight. Discussed with Dr. Oakley who will see the patient in consultation. Possible parapneumonic effusion. Continue pain control. Gram stain with MANY neutrophils and moderate gram-positive cocci in pairs, moderate gram-positive cocci in clusters. Hospital Course Summary Disclaimer: The visit summary below is not to be considered part of the above Progress Note. Hospital Course: 08/15/17 Admit inpatient status under Dr. Izaguirre Will continue with IV Levaquin 750 mg q 24 hr antimicrobial coverage. Blood cultures pending DuoNeb breathing treatments scheduled 4 times a day, also encourage use of incentive spirometry. Morphine available as needed for pain control. Flexeril as needed for muscle spasms given keep back pain. NS at 100ml per hour for gentle hydration SCDs/Lovenox for DVT prophylaxis. D-dimer moderately elevated, decreased activity due to pleuritic pain-CTA of the chest being obtained. Patient does wish to be do not resuscitate. History suggestive of strep pneumonia-urine antigen ordered. At time of discharge medical care will return to PCP Dr. Rodriguez 08/16/17 Continue Levaquin, and nebs for CAP. Viral resp panel negative. Leukocytosis persists, 12.8. Oxygen has been applied for hypoxia with room air sat of 88%. Renal function stable. Requiring frequent doses of IV morphine for symptom control. Will add Ativan for air hunger as well. Reglan PRN nausea. Decrease rate of IVF.
--- NOTE | 2017-08-16 11:34 | CT Scan Report ---
Indication: pleuritic pain, elevated d-dimer PROCEDURE: CT angio pulm emboli: Encounter: Initial Comparison: Chest x-ray from yesterday Technique: Axial CT pulmonary angiographic phase images were performed through the chest after the administration of intravenous contrast. Coronal and Sagittal MIP reconstructed images were created and reviewed. Automated Exposure Control and Iterative Reconstruction dose reducing techniques were utilized. Contrast: Omnipaque 350 65 mL Findings: Pulmonary arteries: Exam is diagnostic to the subsegmental pulmonary arterial level. No filling defects identified to suggest a pulmonary embolus. Other findings: Moderate left pleural effusion with bilateral extensive lower lobe regions of consolidation. No pneumothorax. The central airways show mucous plugging within multiple bilateral lower lobe bronchi. Heart size is normal. Small pericardial effusion. Patulous fluid-filled esophagus. No axillary or mediastinal adenopathy. The upper abdomen shows no acute findings. Vicarious excretion of contrast by the gallbladder. Impression: 1. No pulmonary embolus. 2. Severe bilateral lower lobe consolidation with mucous plugging in several bronchi could be due to pneumonia with parabronchial spread of infection or aspiration. There is associated moderate left effusion. .
--- NOTE | 2017-08-16 16:05 | Pulmonology Consult Note ---
<Annita Clay D - Last Filed: 08/16/17 16:01> History of Present Illness Consult date: 08/16/17 Requesting physician: Kristen Izaguirre Reason for consult: dyspnea, pneumonia Chief complaint: Bilateral pneumonia History of present illness: This is a 62-year-old female that presents with bilateral lower lobe pneumonia, tachycardia and tachypnea. She states her dyspnea started last week and symptoms have progressed throughout the week with complaints of left sided rib pain that radiates into her back, worsens with activity or coughing and is sharp in nature. She has noted a cough with green thick sputum since last week also. She denies any fevers, dizziness, syncope, chills, or vomiting. States she has had increased nausea and does not have an appetite. She denies any history of respiratory issues but has a history of smoking, does not wear oxygen at home. States she wasn't improving and presented [place] the [place] [facility] [place] WBC on arrival was 12.5, afebrile, tachypnic and tachycardic. Was started on O2 at 3L and transferred to the Floor. D-Dimer was 300 today, CT scan done which shows a complicated parapneumonic effusion and bilateral lower lobe pneumonias. We have been consulted for her pulmonary issues and appreciate the consult. Review of Systems ROS unobtainable: other (Pt. lethargic and has mildly labored breathing) - Constitutional Constitutional: Present: fatigue, lethargy, weakness. Absent: fever(s), headache(s), increased appetite - EENT Eyes: Present: other (Glasses). Absent: blurry vision, change in vision Ears: Absent: ear pain, tinnitus Nose: Absent: pain, nosebleeds Mouth/Throat: Present: mucosa dry, normal dentition, post-nasal discharge - Cardiovascular Cardiovascular: Present: dyspnea on exertion. Absent: chest pain, palpitations , edema, heart murmur - Respiratory Respiratory: Present: cough, dyspnea, dyspnea on exertion, pain on inspiration, chest congestion, excessive phlegm production. Absent: hemoptysis - Gastrointestinal Gastrointestinal: Present: abdominal pain, nausea. Absent: constipation, diarrhea, hematemesis, hematochezia, vomiting - Genitourinary Genitourinary: Absent: difficulty urinating, dysuria, hematuria - Musculoskeletal Musculoskeletal: Present: muscle weakness. Absent: abnormal gait, back pain - Integumentary/Breasts Integumentary: Absent: lesions, rash, swelling, wounds - Neurological Neurological: Present: weakness. Absent: dizziness, headache(s), loss of vision , numbness - Psychiatric Psychiatric: Present: anxiety. Absent: depression, suicidal ideation - Hematologic/Lymphatic Hematologic/Lymphatic: Absent: easy bleeding, easy bruising - Allergic/Immunologic Allergic/Immunologic: Absent: throat swelling, seasonal rhinorrhea, lip swelling [facility] Medical History (Last Updated 04/06/17 @ 09:13 by Min Bates MD) Chronic headaches (Acute Medical ~04/2016) Surgical History: Hysterectomy 1997. Bunuionectomy 2013 Family History: Family History (Last Reviewed 04/06/17 @ 08:54 by Min Bates MD) Mother Heart attack High blood pressure Father Diabetes Stroke - Social History Smoking status: Former smoker Substance use type: does not use Alcohol intake: former Alcohol intake frequency: does not drink Current occupational status: employed Current residence: Apartment/Private Home Medications Home Medications Medication Instructions Recorded Confirmed Type Ascorbate Calcium [Vitamin C] 1,000 mg PO DAILY 08/14/17 08/15/17 History Calcium Carb/Vitamin D3/Vit K1 1 tab PO DAILY 08/14/17 08/15/17 History [Viactiv Soft Chew] Cholecalciferol (Vitamin D3) 1,000 unit PO DAILY 08/14/17 08/15/17 History [Vitamin D3] Estradiol 1 patch TD WEEKLY 08/14/17 08/15/17 History Ibuprofen 400 mg PO Q4H PRN 08/14/17 08/15/17 History Lactobacillus Acidophilus 1 cap PO DAILY 08/14/17 08/15/17 History [Probiotic] Loratadine [Claritin] 10 mg PO DAILY 08/14/17 08/15/17 History Multivitamin [One Daily] 1 tab PO DAILY 08/14/17 08/15/17 History PEG 3350 17gm PACKET [Miralax] 17 gm PO DAILY PRN 08/15/17 08/15/17 History Allergies Allergy/AdvReac Type Severity Reaction Status Date / Time No Known Allergies Allergy Verified 08/15/17 12:53 Exam Vital signs: Temperature 99.3 F 08/16/17 08:54 Pulse Rate 110 H 08/16/17 08:54 Respiratory Rate 24 08/16/17 15:07 Blood Pressure 122/69 08/16/17 08:54 Pulse Oximetry 96 08/16/17 10:55 - Constitutional moderate distress, well nourished, well developed - Routine HEENT Exam Head: Present: normocephalic Eye: Present: PERRL ENT: Present: mucous membranes dry, oropharynx clear, nares patent Nose: moist mucous membranes - Routine Neck Exam Present: supple, full ROM, JVD, trachea midline. Absent: carotid bruit, tenderness, swelling - Routine Chest/Breast/Axilla Exam Chest wall: Present: tenderness (Left lateral chest wall) - Routine Respiratory Exam Present: accessory muscle use, dyspnea, decreased breath sounds (Bilateral bases ), rhonchi (Throughout). Absent: wheezes, crackles - Routine Cardiovascular Exam Present: RRR, S1, S2, tachycardia. Absent: no murmur, gallop, rubs, JVD - Routine Abdominal Exam Present: soft, tenderness, non distended Comments: Hypoactive bowel sounds - Routine Extremities Exam Present: non tender, full ROM, pulses intact, normal capillary refill. Absent: cyanosis, clubbing - Routine Back/Spine/Pelvis Exam Back/Spine: Present: full ROM - Routine Skin Exam Present: intact, dry, normal turgor - Routine Neurological Exam Present: oriented X3, CN II-XII intact, moving all extremities Lethargic - Routine Psychiatric Exam Present: normal thought process, cooperative, good judgment, anxious. Absent: suicidal ideation Results - Laboratory Findings CBC and BMP: 08/16/17 04:33 08/16/17 04:33 PT/INR, D-dimer D-Dimer 385 NG/ML (0-230) H 08/15/17 16:33 Abnormal lab findings: Abnormal Labs 08/15/17 08/16/17 08/16/17 16:33 00:23 04:33 WBC 12.8 H RBC 3.89 L Neutrophils % (Manual) 79.0 H Band Neutrophils % 7.0 H Lymphocytes % (Manual) 7.0 L Neutrophils # (Manual) 10.1 H Lymphocytes # (Manual) 0.9 L Monocytes # (Manual) 0.9 H D-Dimer 385 H Creatinine Glucose Calculated Osmolality Urine Protein 1+ A Urine Ketones 3+ A Urine Occult Blood 1+ A 08/16/17 04:33 WBC RBC Neutrophils % (Manual) Band Neutrophils % Lymphocytes % (Manual) Neutrophils # (Manual) Lymphocytes # (Manual) Monocytes # (Manual) D-Dimer Creatinine 0.6 L Glucose 116 H Calculated Osmolality 259 L Urine Protein Urine Ketones Urine Occult Blood - Diagnostic Findings Chest x-ray: report reviewed, image reviewed CT scan - chest: report reviewed, image reviewed Assessment and Plan - Assessment and Plan Assessment: Acute hypoxic respiratory insufficiency requiring supplemental oxygen Bilateral lower lobe pneumonia Sepsis Elevated d-dimer (POA) - Negative CTA Acute pleuritic pain Plan: Acute Hypoxic Respiratory Failure - Currently on 3L-NC. Continue supplemental oxygen as needed to keep SPO2 >90% - Encourage IS use, currently at bedside - Influenza and RSV negative Bilateral Lower Lobe Pneumonia - Continue Levaquin 750mg Q24H - CTA chest: Bilateral lobe consolidation with mucus plugs, moderate left effusion - Increase Duoneb btx Q4H and QID PRN - Start 3% saline with acapella. - Likely will require a bronchoscopy - Sputum cultures: moderate gram positive cocci with pairs and in clusters, few gram positive and negative rods with few epithelial cells seen - WBC 12.8>12.5 - Blood cultures negative - Failure OP treatment Complicated parapneumonic effusion -Likely needs chest tube with decort, would suggest transferring to [place] for CTS consult. If transfer not done, will need chest tube placed at the least along with a bronchoscopy Pleuritic Pain - Continue with pain management, Morphine and [place] - Encouraged splinting when coughing to help with pain - Ativan PRN to help with anxiety - Time Spent With Patient Total time spent is greater than 50% in coordination of care (as documented) at patient's floor/unit and/or counseling patient: 25 - 35 minutes <John Oakley - Last Filed: 08/16/17 20:09> [facility] Medical History (Last Updated 04/06/17 @ 09:13 by Min Bates MD) Chronic headaches (Acute Medical ~04/2016) Family History: Family History (Last Reviewed 04/06/17 @ 08:54 by Min Bates MD) Mother Heart attack High blood pressure Father Diabetes Stroke Exam Vital signs: Temperature 98.8 F 08/16/17 19:50 Pulse Rate 121 H 08/16/17 19:50 Respiratory Rate 24 08/16/17 19:50 Blood Pressure 106/67 08/16/17 19:50 Pulse Oximetry 92 08/16/17 19:50 Results - Laboratory Findings CBC and BMP: 08/16/17 04:33 08/16/17 04:33 ABG ABG pH 7.420 (7.350-7.450) 08/16/17 17:00 ABG pCO2 35 MMHG (34-45) 08/16/17 17:00 ABG pO2 69 MMHG (80-100) L 08/16/17 17:00 ABG O2 Saturation 94.0 % (95.0-98.0) L 08/16/17 17:00 PT/INR, D-dimer D-Dimer 385 NG/ML (0-230) H 08/15/17 16:33 Abnormal lab findings: Abnormal Labs 08/15/17 08/16/17 08/16/17 16:33 00:23 04:33 WBC 12.8 H RBC 3.89 L Neutrophils % (Manual) 79.0 H Band Neutrophils % 7.0 H Lymphocytes % (Manual) 7.0 L Neutrophils # (Manual) 10.1 H Lymphocytes # (Manual) 0.9 L Monocytes # (Manual) 0.9 H D-Dimer 385 H ABG pO2 ABG O2 Saturation Creatinine Glucose Calculated Osmolality Urine Protein 1+ A Urine Ketones 3+ A Urine Occult Blood 1+ A 08/16/17 08/16/17 04:33 17:00 WBC RBC Neutrophils % (Manual) Band Neutrophils % Lymphocytes % (Manual) Neutrophils # (Manual) Lymphocytes # (Manual) Monocytes # (Manual) D-Dimer ABG pO2 69 L ABG O2 Saturation 94.0 L Creatinine 0.6 L Glucose 116 H Calculated Osmolality 259 L Urine Protein Urine Ketones Urine Occult Blood Assessment and Plan - Time Spent With Patient Total time spent is greater than 50% in coordination of care (as documented) at patient's floor/unit and/or counseling patient: - Attestation Attestation Narrative: I have reviewed this case and pertinent data. I have discussed the case with the BIOLOGICAL TECHNICAL OFFICER and Dr Izaguirre. I agree with the notes above
[2017-08-16] MEDS: LEVOFLOXACIN PB 750 MG/150 ML BAG IV SCH (16:46)
[2017-08-16 16:56] VITALS: O2SAT 92
[2017-08-16] MEDS ORDERED: SODIUM CL 7% INHAL. SOLN 4ml NEB AEROSOL SCH (17:00)
--- NOTE | 2017-08-16 19:12 | Discharge Summary ---
Discharge Information Date of admission: 08/15/17 16:25 Anticipated date of discharge: 08/16/17 Attending Physician: Kristen Izaguirre MD Primary care physician: Brenda Rodriguez DO Consults: Consulting Provider: John Oakley Reason For Exam: pneumonia/pleuritic pain - Discharge Diagnosis (1) Bilateral pneumonia Status: Acute (2) Acute respiratory failure with hypoxia Status: Acute Bilateral lower lobe pneumonia Complicated parapneumonic effusion Acute hypoxic respiratory failure with hypoxia Mucus plugging Sirs-tachycardia, tachypnea, leukocytosis Acute back/chest wall pain-pleuritic Failed outpatient treatment Chronic headaches Chronic pituitary adenoma - Laboratory Labs: White count 08/19/17- 14.4 with 94% neutrophils and 2% bands On admission 08/15/17: White count 12.5 with unremarkable differential, hemoglobin 12.9, d-dimer 385 with range 0-230 in our lab. Admission chemistries unremarkable other than blood sugar 136. 08/16/17 04:33 08/16/17 04:33 Differential on 08/16/17: Neutrophils 79, bands 7, lymphocytes 7, monocytes 7 blood gas on 3 L supplemental O2 7.42/35/69/23 with saturation 94% - Microbiology 08/16/17 09:07 Sputum, Expectorated Gram Stain - many neutrophils, moderate gram-positive cocci in pairs, moderate gram-positive cocci in clusters 08/16/17 09:07 Sputum, Expectorated Sputum Culture - Preliminary Culture Initiated - Results Pending - Radiology Radiology: CT abdomen/pelvis with contrast on 08/14/17- Airspace consolidation in the posterior lower lobes, greater on the left. 3 cm possible cyst or hemangioma in the anterior right lobe of the liver. Additional 1 cm cyst in the medial right lobe, near the gallbladder fossa. No enhancing liver mass or bile duct dilatation. The gallbladder, spleen, pancreas, adrenal glands and kidneys are within normal limits. No abdominal or pelvic lymphadenopathy. Bladder is normal. No free fluid. No evidence of a bowel obstruction. Bone windows show mild degenerative change in the spine. Impression: Lower lobe pneumonia. Chest x-ray on 08/15/17- Hazy airspace opacities are seen in both lower lobes as noted on prior CT with a small left effusion. No pneumothorax. Heart size and mediastinal contours are within normal limits. Pulmonary vascularity is normal. Impression: Lower lobe pneumonia. Chest CTA for pulmonary emboli on 08/16/17- Pulmonary arteries: Exam is diagnostic to the subsegmental pulmonary arterial level. No filling defects identified to suggest a pulmonary embolus. Other findings: Moderate left pleural effusion with bilateral extensive lower lobe regions of consolidation. No pneumothorax. The central airways show mucous plugging within multiple bilateral lower lobe bronchi. Heart size is normal. Small pericardial effusion. Patulous fluid-filled esophagus. No axillary or mediastinal adenopathy. The upper abdomen shows no acute findings. Vicarious excretion of contrast by the gallbladder. Impression: 1. No pulmonary embolus. 2. Severe bilateral lower lobe consolidation with mucous plugging in several bronchi could be due to pneumonia with parabronchial spread of infection or aspiration. There is associated moderate left effusion. History of Present Illness HPI: Gertrude is a 62 year-old female who has been ill since 08/07/17. At that time she had cough and severe body aches. She felt that she had influenza, however, was not acutely evaluated. Over the course of that week, she felt that her symptoms mildly improved and she even attempted to go to work yesterday morning, however , then began to feel significantly worse. She presented to the emergency room yesterday afternoon for acute evaluation and left flank/back pain. WBC count yesterday was 14.4, abdominal CT was performed due to left back pain. Patient was found to have lower lobe pneumonia. She was started on Levaquin and discharged home. Today she presents back with significant pain in the left back with continued dyspnea and productive coughing. White count today was repeated is slightly down at 12.5. Chest was repeated today did reveal bilateral lower lobe pneumonia. Patient does meet SIRS criteria given tachypnea, tachycardia and leukocytosis. Given her worsening symptoms despite initiation of Levaquin the hospitalist services were contacted and accepted patient for inpatient admission for further evaluation and treatment. It is expected that her stay will be greater than 2 overnights. Gertrude is seen on admission. She appears to be in a moderate amount of discomfort during examination. She is tachypnea, breathing between 34 and 40 times a minute. He complains of having significant amount of left back and left posterior rib discomfort. She is unable to take a deep breath due to this pain. He describes muscle spasms that are intermittent in nature. He also reports having a moderate amount of productive thick green sputum. She denies having any fevers or chills, she does complain of generalized body pain that is been intermittent for the past 9-10 days. She denies having any chest pain, however, does feel short of breath at times. Reported nausea just prior to admission. No recent falls or injuries. Did discuss advanced directive. She does indicate she would like to be a do not resuscitate Objective Vital signs: Temperature 100.0 F 08/16/17 16:54 Pulse Rate 129 H 08/16/17 16:54 Respiratory Rate 20 08/16/17 16:54 Blood Pressure 143/80 H 08/16/17 16:54 Pulse Oximetry 92 -3L 08/16/17 16:54 Patient is drowsy but answers questions appropriately. Respirations are moderately labored and very shallow. Breath sounds are diminished without wheezing. Cardiac rhythm is regular with low-grade tachycardia. Height/Weight/BMI: Weight 59.1 kg Hospital Course This is a general summary of the patient's hospital course. For more details refer to the complete medical record. Hospital course: 08/15/17 Admit inpatient status under Dr. Izaguirre Will continue with IV Levaquin 750 mg q 24 hr antimicrobial coverage. Blood cultures pending DuoNeb breathing treatments scheduled 4 times a day, also encourage use of incentive spirometry. Morphine available as needed for pain control. Flexeril as needed for muscle spasms given keep back pain. NS at 100ml per hour for gentle hydration SCDs/Lovenox for DVT prophylaxis. D-dimer moderately elevated, decreased activity due to pleuritic pain-CTA of the chest being obtained. Patient does wish to be do not resuscitate. History suggestive of strep pneumonia-urine antigen ordered. At time of discharge medical care will return to PCP Dr. Rodriguez 08/16/17 Continue Levaquin, and nebs for CAP. Viral resp panel negative. Leukocytosis persists, 12.8. Oxygen has been applied for hypoxia with room air sat of 88%. Renal function stable. Requiring frequent doses of IV morphine for symptom control. Will add Ativan for air hunger as well. Reglan PRN nausea. Decrease rate of IVF. Pulmonary consultation requested after CTA demonstrated significant increase in infiltrates both right and left with parapneumonic effusion and mucus plugging of airways. Complicated parapneumonic effusion, possible empyema-transfer to [place] where CT surgery is available in the event decortication as needed. Blood gas without hypercarbia. Patient's sister updated and patient has opted to transfer to [place] after further discussion. Discussed with hospitalist there and accepted for transfer. Resuscitation Status: Do Not Resuscitate Discharge Plan - Discharge Disposition Discharge Date: 08/16/17 *Condition: Stable Reason For Visit (Visit label in EMR): Tachycardia,tachpnea,bilateral lower lobe pneumoni - Discharge Medications *Discharge Medications: New Albuterol/Ipratropium [Duoneb] 3 ml AEROSOL QID PRN each PRN Reason: Shortness Of Air/Wheezing Cyclobenzaprine [Flexeril] 10 mg PO TID PRN tab PRN Reason: Muscle Spasm Enoxaparin Sodium [Lovenox] 40 mg SQ DAILY syringe Guaifenesin LA [Mucinex LA] 600 mg PO BID tab Metoclopramide [Reglan] 5 mg IVP Q6H PRN vial PRN Reason: Nausea Morphine Sulfate Inj 2 - 4 mg IVP Q2H PRN syringe PRN Reason: Pain Levofloxacin Pb [Levaquin Premix] 750 mg IV Q24H bag Albuterol/Ipratropium [Duoneb] 3 ml AEROSOL Q4HR each Hydrocodone/APAP 7.5/325 [[place] 7.5/325] 1 tab PO Q4H PRN tab PRN Reason: Pain Continue Loratadine [Claritin] 10 mg PO DAILY Lactobacillus Acidophilus [Probiotic] 1 cap PO DAILY Calcium Carb/Vitamin D3/Vit K1 [Viactiv Soft Chew] 1 tab PO DAILY Multivitamin [One Daily] 1 tab PO DAILY Cholecalciferol (Vitamin D3) [Vitamin D3] 1,000 unit PO DAILY Estradiol 1 patch TD WEEKLY Ascorbate Calcium [Vitamin C] 1,000 mg PO DAILY Ibuprofen 400 mg PO Q4H PRN PRN Reason: Pain PEG 3350 17gm PACKET [Miralax] 17 gm PO DAILY PRN PRN Reason: Constipation Discontinued levoFLOXacin [Levaquin] 500 mg PO DAILY #14 tab - Discharge Packet/Instructions *Diet: Regular *Activity: As tolerates *Pain Management/Treatment: See medication list *Wound Care: Not applicable *Expected Signs/Symptoms: Cough, shortness of breath, chest wall pain *Notify Physician if: Bloody sputum, increasing difficulty breathing *During Business Hours Contact: Notify nurse to contact physician *After Business Hours Contact: As above *Pending Lab/Results: Will be notified (Rd will be notified of culture results if anything positive) - Referrals/Follow Up - Patient Handouts - Dismissal Complete Discharge Instructions are:: Complete Physician Narrative - Narrative Attestation Narrative: Date: 08/16/17 Time: 1906
[2017-08-16 19:13] VITALS: RESP 24
[2017-08-16 19:53] VITALS: BP 106/67; PULSE 121; TEMP 98.8
[2017-08-16] MEDS ORDERED: ALBUTEROL/IPRATROPIUM 2.5mg-0.5mg/3ml NEB AEROSOL SCH (20:00)
== END 2017-08-16 20:30 | disposition short-term general hospital (02) | DRG 871 ==
LOC: MED 12:46 → ED 12:46 → MED 15:50
PROVIDERS: ADMIT Internal Medicine; ATTEND Internal Medicine